=== PATIENT | male | born 1970 | race Hispanic/Latino ===

== ENCOUNTER 2019-10-13 06:50 | Day surgery (SDC) | payer BC ==
[2019-10-12 15:19] VITALS: BP 173/99
[2019-10-12 15:23] LABS: BASOPHILS % (AUTO) 0.4 % (0.0-5.0); EOSINOPHILS % (AUTO) 1.7 % (0.0-8.0); HEMATOCRIT 41.4 % (42-54); LYMPHOCYTES % (AUTO) 38.5 % (21.0-51.0); MEAN CORPUSCULAR VOLUME 88.1 fL (79-99); MONOCYTES % (AUTO) 9.5 % (3.0-13.0); NEUTROPHILS % (AUTO) 49.9 % (40.0-77.0); NUCLEATED RED BLOOD CELLS 0.1 % (0.0-0.19); PLATELET COUNT (AUTO) 152 K/uL (130-400); RED CELL DISTRIBUTION WIDTH 13.6 % (11.0-15.5); WHITE BLOOD COUNT (AUTO) 6.3 K/uL (4.8-10.8)
[2019-10-12 15:32] LABS: CREATININE 1.1 mg/dL (0.5-1.5)
[2019-10-12 15:51] VITALS: BP 154/92
[~2019-10-13] VITALS: Ht 170.2 cm; Wt 88.1 kg
[2019-10-13] VITALS (17 sets, daily range): BP systolic 87–137; BP diastolic 47–80
[~2019-10-13 06:50] MED LIST: CALCIUM/MAG PO; LOSA50TA64 PO; MEGA RED PO
[2019-10-13] MEDS ORDERED: LACTATED RINGERS 1000ML 1,000 ML IV ONE (07:41)
[2019-10-13] MEDS ORDERED: CEFAZOLIN SODIUM 1 GM VIAL IVP ONE (08:00)
[2019-10-13] MEDS ORDERED: DEXAMETHASONE SOD PHOSPHATE 10MG/ML 1ML VIAL ONE (08:24)
[2019-10-13] MEDS ORDERED: MIDAZOLAM HCL 1 MG/ML 2ML VIAL ONE (08:24)
[2019-10-13] MEDS ORDERED: ONDANSETRON HCL 4 MG/2 ML VIAL ONE (08:24)
[2019-10-13] MEDS ORDERED: LIDOCAINE PF 2% 5ML ABBOJECT ONE (08:24)
[2019-10-13] MEDS ORDERED: FENTANYL CITRATE PF 50 MCG/1 ML 2ML VIAL ONE ×2 (08:25→09:00)
[2019-10-13] MEDS ORDERED: PROPOFOL 10 MG/ML 20ML VIAL IV ONE (08:25)
[2019-10-13] MEDS ORDERED: GLYCOPYRROLATE 1 MG/5 ML SYRINGE ONE (08:41)
[2019-10-13] MEDS ORDERED: MELO-108 PO (09:31)
[2019-10-13] MEDS ORDERED: ACET1TAB12 PO (09:31)
[2019-10-13] MEDS ORDERED: CEPH500B PO (09:31)
[2019-10-13] MEDS ORDERED: MEPERIDINE-PF 25 MG/ML SYG ONE ×2 (09:48→10:01)
--- NOTE | 2019-10-13 10:30 | NUR ---
ASSESSMENT RECEIVED PT FROM PACU STAFF REBECA JOE. PT AAOX3. DRSG TO RIGHT KNEE DRY AND INTACT. NO BLEEDING, OOZING NOTED TO SITE. ICE PACK PLACED TO RIGHT KNEE. INSTRUCTIONS GIVEN TO ON USE OF ICE PACK FOR HOME USE. VERBALIZED UNDERSTANDING.
--- NOTE | 2019-10-13 11:20 | NUR ---
DISCHARGE ORAL AND WRITTEN DISCHARGE INSTRUCTIONS GIVEN TO PT AND PTS ALONG WITH PRESCRIPTION. NO OTHER OTHER QUESTIONS AT THIS TIME.
== END 2019-10-13 11:25 | disposition home or self-care (01) ==
LOC: DAH 06:50 → EDSEX 14:00
PROVIDERS: ATTEND Orthopaedic Surgery
DX: M23.221 Derangement of posterior horn of medial meniscus due to old tear or injury, right knee (principal); M94.261 Chondromalacia, right knee; G89.29 Other chronic pain; M17.11 Unilateral primary osteoarthritis, right knee; I10 Essential (primary) hypertension; E66.9 Obesity, unspecified; Z79.899 Other long term (current) drug therapy
CPT/HCPCS: 29881; 36415; 80048; 85025; A4215 ×2; A4222; A4223; A4606; A4649; A4663; A4930 ×2; A5120; A6223; J0690; J1100; J2001; J2175 ×2; J2250; J2405; J2704; J3010 ×2; J3490; J7120